=== PATIENT | male | born 1990 | race Caucasian/White ===

== ENCOUNTER 2020-10-19 02:32 | Emergency (ER) | payer MEDICAID ==
[~2020-10-19] VITALS: Ht 182.9 cm; Wt 270.4 kg
[2020-10-19 02:48] VITALS: BP 130/76
[2020-10-19] MEDS ORDERED: LIDOcaine/PRILOcaine 5gm cream TP ONE (03:00)
[2020-10-19] MEDS ORDERED: ibuprofen tablet 400 MG TABLET PO ONE (03:00)
[2020-10-19] MEDS ORDERED: MELO-100 PO (03:00)
[2020-10-19] MEDS ORDERED: acetaminophen 325mg tablet PO ONE (03:00)
[2020-10-19] MEDS ORDERED: TETanus/Pertussis (Acell)/Diphther VAC/PF (Tdap-Adult) 0.5ml syringe IMVAC ONE (03:00)
== END 2020-10-19 03:42 | disposition home or self-care (01) ==
LOC: ER 02:33
DX: S61.211A Laceration without foreign body of left index finger without damage to nail, initial encounter (principal); Z20.3 Contact with and (suspected) exposure to rabies; Z79.899 Other long term (current) drug therapy; W45.8XXA Other foreign body or object entering through skin, initial encounter; Y93.89 Activity, other specified; Y92.89 Other specified places as the place of occurrence of the external cause; Y99.8 Other external cause status
CPT/HCPCS: 90471; 90715; 99284

== ENCOUNTER 2020-10-24 09:14 | Emergency (ER) | payer MEDICAID ==
[~2020-10-24] VITALS: Ht 182.9 cm; Wt 88.6 kg
[~2020-10-24 09:14] MED LIST: MELO-100 PO
[2020-10-24 09:23] VITALS: BP 131/85
[2020-10-24] MEDS ORDERED: LIDOcaine 1% W/epiNEPHrine 1:200,000 10ml vial IJ ONE (09:55)
[2020-10-24] MEDS ORDERED: bacitracin 15gm ointment TP ONE (10:30)
[2020-10-24] MEDS ORDERED: CEPH500C5 PO (10:37)
== END 2020-10-24 10:53 | disposition home or self-care (01) ==
LOC: ER 09:15
DX: S61.210A Laceration without foreign body of right index finger without damage to nail, initial encounter (principal); S61.312A Laceration without foreign body of right middle finger with damage to nail, initial encounter; Z79.2 Long term (current) use of antibiotics; Z79.899 Other long term (current) drug therapy; W26.8XXA Contact with other sharp object(s), not elsewhere classified, initial encounter; Y93.89 Activity, other specified; Y92.89 Other specified places as the place of occurrence of the external cause; Y99.8 Other external cause status
CPT/HCPCS: 12002; 99283